=== PATIENT | male | born 1980 | race African-American/Black ===

== ENCOUNTER 2016-10-08 12:58 | Emergency (ER) | payer OTHER ==
[~2016-10-08] VITALS: Ht 160 cm; Wt 59.0 kg
[~2016-10-08 12:58] MED LIST: ACETAMINOPHEN; PHENERGAN12.5 MG DOB; PHENERGAN12.5 MG PO
== END 2016-10-08 13:58 | disposition home or self-care (01) ==
LOC: CFTX 12:58 → CED 12:58 → CFTX 13:39
DX: L25.0 Unspecified contact dermatitis due to cosmetics (principal); L03.313 Cellulitis of chest wall; F17.200 Nicotine dependence, unspecified, uncomplicated; R56.9 Unspecified convulsions
CPT/HCPCS: 99283